=== PATIENT | male | born 1940 | race Caucasian/White ===

== ENCOUNTER 2025-06-07 12:45 | Outpatient (CLI) | payer MEDICARE, BC ==
--- NOTE | 2025-06-07 14:59 | RADIOLOGY REPORT ---
CLINICAL HISTORY: EFFUSION L ANKLE, PAIN IN L FOOT TECHNIQUE: Multisequence multiplanar MRI images of the left ankle were obtained without contrast. COMPARISON: None FINDINGS: BONES/JOINTS: Postsurgical changes of left ankle arthroplasty with associated metallic susceptibility artifact which limits evaluation of adjacent structures. Given this limitation. No evidence of acu te fracture or focal marrow contusion. TENDONS: Tibialis posterior, flexor digitorum longus, and flexor hallucis longus tendons are intact. Portions of the peroneal tendons are obscured near the level of the lateral malleolus due to artifact . The peroneal tendons appear otherwise intact. Tibialis anterior, extensor hallucis longus, and exte nsor digitorum longus tendons are intact. Mild Achilles tendinosis with no tear or significant perite ndinitis visualized. LIGAMENTS: Limited evaluation due to artifact. PLANTAR FASCIA: Mild edema adjacent to the calcaneal attachment of the plantar fascia. SINUS TARSI: Unremarkable. No significant edema. MUSCLES: Marked fatty atrophy of the abductor digiti minimi muscle and moderate fatty atrophy of the quadratus plantae muscle, abductor hallucis muscle, and flexor digitorum brevis muscle. There is mild T2 hyperintense signal in the flexor digitorum brevis and abductor hallucis muscles suggesting a deg ree of acute or subacute denervation. OTHER: No organized fluid collection identified. IMPRESSION: 1. Postsurgical changes of prior ankle arthroplasty with associated artifact which limits evaluation of adjacent structures. 2. No acute osseous abnormality identified given the limitations of the examination. 3. Mild Achilles tendinosis. 4. Fatty atrophy of the intrinsic musculature of the hindfoot, greatest involving the abductor digiti minimi muscle as described above, likely due to denervation. 5. Additional findings as described above.
--- NOTE | 2025-06-07 15:40 | RADIOLOGY REPORT ---
EXAM: CT CT LOWER EXTREMITY INDICATION: PAIN IN L FOOT, PERONEAL TENDINITIS, L LEG TECHNIQUE: Axial images of left lower extremity have been obtained along with coronal and sagittal re formatted images. All CT scans at this facility use dose modulation, iterative reconstruction, and/or weight based dosing when appropriate to reduce radiation dose to as low as reasonably achievable. COMPARISON: None FINDINGS: BONES: Left tibiotalar articulation arthroplasty. No osseous lucency along the hardware bone interfac es. No perihardware fracture. Polyethylene spacer appears within normal limits. Small plantar calcane al spur. Small amount of osseous spurring / heterotopic ossification along the posterior margin of th e distal tibial plafond component, which May contribute to decreased range of motion. MUSCLES: No abnormal attenuation. JOINT SPACES: No joint effusion. TENDONS/LIGAMENTS: Intact. OTHER: Vascular calcifications. Surrounding subcutaneous adipose tissue edema IMPRESSION: 1. No CT evidence of an acute fracture. Left tibiotalar / ankle mortise arthroplasty without radiogra phic evidence of hardware complication.
== END 2025-06-07 23:59 | disposition home or self-care (01) ==
LOC: MRI 12:45
PROVIDERS: ATTEND Podiatrist Foot & Ankle Surgery
DX: M76.62 Achilles tendinitis, left leg (principal); M25.472 Effusion, left ankle; M79.672 Pain in left foot; M76.72 Peroneal tendinitis, left leg; M25.872 Other specified joint disorders, left ankle and foot; M77.32 Calcaneal spur, left foot; Z89.442 Acquired absence of left ankle
CPT/HCPCS: 73700; 73721